=== PATIENT | female | born 1990 | race Caucasian/White ===

== ENCOUNTER 2019-09-04 20:00 | Inpatient (IN) | payer MEDICAID, SELFPAY ==
[2019-09-04] VITALS (18 sets, daily range): BP systolic 134–176; BP diastolic 65–90; PULSE 70–81; RESP 16–18; TEMP 36.6–37.8; O2SAT 100; BMI 47.5
--- NOTE | 2019-09-04 19:29 | NURSING ---
[id number] pt presents to via squad from a home delivery at 1716 per fryer operator rob ghosh. reshma here on unit made aware of pt
--- NOTE | 2019-09-04 19:31 | NURSING ---
183 cplotts into see pt; fundus firm lochia small; examination done and found that pt needs a repair; pt transferred to room 19 for use of stirrups and dr abbott called into assess need for repair. see recovery for vs and fundal checks
[2019-09-04] MEDS: 0.9% Saline Lock 10 ML Syringe IV (20:05)
--- NOTE | 2019-09-04 20:06 | PCM.PN.OB ---
Patient Problems: Active and Suspected Problems 39 weeks gestation of (Acute) - Physical Exam Vitals/I&O's: Vital Signs Temp Pulse Resp BP 97.9 F 77 16 147/87 H 09/04/19 18:30 09/04/19 19:55 09/04/19 18:30 09/04/19 19:55 Assessment/Plan All Active Problems 39 weeks gestation of (Acute)
--- NOTE | 2019-09-04 20:35 | NURSING ---
Addendum entered by Cherelle Soto 09/04/19 20:38: This interaction occurred at 1930 Original Note: Dr. Bergman in with CNW Cr Mendez to assess patient's laceration from a planned home delivery. pt has a 1st degree perineal LAC, Dr. Bergman reports ok not to repair. bleeding is under control, fundus is firm at the umbilicus. MD talked with pt about admitting her for 24 hours to monitor BP and since infant is in SCN. pt in agreeance. order received to draw Pre-e labs.
[2019-09-04 20:44] LABS: Absolute Lymphocyte Count 1.14 X10^3/uL (0.83-4.51); Absolute Neutrophil Count 11.5 X10^3/uL (2.0-7.7); Basophil# 0.03 X10^3/uL; Basophil% 0.2 % (0-1); Eosinophil# 0.01 X10^3/uL; Eosinophils% 0.1 % (0-5); Hematocrit 36.2 % (37-47); Hemoglobin 12.2 g/dL (12.0-15.0); Lymphocyte # 1.14 X10^3/ul (4.0); Lymphocyte % 8.6 % (19-41); Mean Corp Hgb Conc 33.7 g/dL (32-36); Mean Corpuscular Hgb 28.8 pg (27.0-32.0); Mean Corpuscular Volume 85.4 fL (81-99); Mean Platelet Vol. 11.9 fl (6.2-12.0); Monocyte# 0.44 X10^3/uL; Monocyte% 3.3 % (0-10); NRBC Flagged by Analyzer 0 % (0-5); Neutrophil # 11.48 X10^3/uL (2.7-7.7); Neutrophil % 87.2 % (47-70); Platelet Count 211 K/mm3 (150-450); RBC Distribution Width CV 14.2 % (11.6-14.6); RBC Distribution Width SD 43.8 fl (35.1-43.9); Red Blood Count 4.24 M/mm3 (4.2-5.4); White Blood Count 13.2 K/mm3 (4.4-11.0)
[2019-09-04 20:53] LABS: Prothrombin Time (Protime)PT. 13.4 SECONDS (11.7-14.9)
[2019-09-04 21:02] LABS: AST(SGOT) 14 U/L (15-37); Alanine Aminotransfer ALT/SGPT 13 U/L (13-56); Creatinine, Serum 0.54 mg/dL (0.55-1.02); EST Glomerular Filtration Rate 142 mL/min (>60); Est Glom Filt Rate - Afr Amer 172 mL/min (>60); Estimated Creatinine Clearance 122.67 ml/min; Uric Acid 4.5 mg/dL (2.6-6.0)
--- NOTE | 2019-09-04 21:15 | PCM.HP.OB ---
History Date of Admission: 09/04/19 Final OZ: 09/10/19 Gestational age: 39 Weeks and 1 Days History of this : This is a 29 year-old, delivered at approx 515 this evening at home. The needed to be resuscitated. A squad was called for the , then a second squad was called to transport the mom to the hospital. She has a history of 2 previous vaginal deliveries and her first delivery was a section. This was a planned home . She denies any complications during the or delivery. She had meconium stained fluid. Allergies amoxicillin Allergy (Verified 09/04/19 19:59) Hives Penicillins [PCN] Allergy (Verified 09/04/19 19:59) Hives Home Medications: Home Medications Ferrous Sulfate [Iron] 325 mg PO BID 09/04/19 Vits [Prenatabs FA] 1 tab PO DAILY 09/04/19 Smoking Status: Never smoker Alcohol: None Number of Fetus(es): 1 History Past Pregnancies: Past Pregnancies Delivery Date Name GA/ Weeks Outcome Route Wt Sex Labor Length Anesthesia Delivery Location Provider FOB Review of Systems Constitutional: Denies: Anorexia, Chills, Fever Eyes: Denies: Blurred vision Cardiovascular: Denies: Chest Pain, Edema Respiratory: Denies: Cough Gastrointestinal: Denies: Diarrhea, Vomiting Genitourinary: Denies: Dysuria Skin: Denies: Rash Neurological: Denies: Blurred vision, Double vision, Change in Speech, Confusion, Headaches Hematologic/ Lymphatic: Reports: Anemia Physical Exam Vitals: Vital Signs Temp Pulse Resp BP 97.9 F 72 16 134/89 H 09/04/19 18:30 09/04/19 20:33 09/04/19 18:30 09/04/19 20:33 General: Alert, Cooperative, No apparent distress Lungs: Normal air movement Abdomen: Soft, Non Tender, Non-Distended, - - fundus firm below umbilicus Extremities:: Other - edema 1+ Neurological: Cranial nerves II-XII grossly intact, Deep Tendon Reflexes 2+/4 and Symmetrical. 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 No repair necessary. Average lochia at this time. Blood pressures mildly elevated. No other symptoms of preeclampsia. Will check preeclampsia labs. Draw labs. Baby is in special care nursery. Patient may visit baby in special care nursery unless symptoms of preeclampsia with severe features, then would require magnesium sulfate prophylaxis. Patient is agreed to [facility] to be near her son who is in the special care nursery. Routine care.
[2019-09-04 21:18] LABS: Protein, Urine (Random) 258.1 mg/dL (<11.9); Protein:Creat Ratio 16031 mg/g CRE (0-200)
[2019-09-04 21:19] LABS: Amphetamine Urine VISTA NEGATIVE (<1000 ng/mL); Barbiturate Urine VISTA NEGATIVE (< 200 ng/mL); Benzodiazepine Urine VISTA NEGATIVE (< 200 ng/mL); Cocaine Urine VISTA NEGATIVE (< 300 ng/mL); Ecstacy Urine VISTA NEGATIVE (< 500 ng/mL); Methadone Urine VISTA NEGATIVE (< 300 ng/mL); PCP Urine VISTA NEGATIVE (< 25 ng/mL); THC Urine VISTA NEGATIVE (< 50 ng/mL); Vista UDS pH Range 6
[2019-09-04 21:40] LABS: Rubella IgG 57.8 IU/mL
[2019-09-04 22:28] LABS: HIV - WCH Non-Reactive (Nonreactive); Hepatitis B Surface Antigen Non-Reactive (Nonreactive); Hepatitis C Antibody Non-Reactive (Nonreactive)
[2019-09-05 00:10] VITALS: BP 141/77; PULSE 74; RESP 18; TEMP 36.9
[2019-09-05 03:20] VITALS: BP 120/72; PULSE 85; RESP 18; TEMP 36.7
--- NOTE | 2019-09-05 05:50 | DCINST_ITS ---
Discharge Diet: No Restrictions Discharge Activity: May Drive, May Shower May resume sexual activity in: 6-8 weeks Lifting Restrictions: less than 25lbs Call your doctor if you observe: Chest pain, Calf discomfort Additional Instructions: If you experience any of the following, contact your healthcare provider. * Bleeding that soaks a pad every hour for 2 hours * Fever 100.4 or higher * Unrelieved incision or abdominal pain * Swelling, redness, discharge or bleeding from your incision or episiotomy site * Your incision begins to separate * Problems urinating (including inability to urinate or burning while ur inating). * Visual changes * Severe headache * Flu-like symptoms * Pain or redness in one of both of your breasts * Pain, warmth, tenderness or swelling in your legs, especially the calf area * Frequent nausea and vomiting * Symptoms of depression or anxiety If you experience any of the following, call 911 or go to the nearest Emergency Room. * Chest pain * Problems breathing * Seizure activity * Partial or complete paralysis of a body part, slurred speech, weakness or drooping of the face, or a sudden inability to walk or hold your balance Allergies/Adverse Reactions: Allergies amoxicillin Allergy (Verified 09/04/19 19:59) Hives Penicillins [PCN] Allergy (Verified 09/04/19 19:59) Hives Medications to take at Discharge Ferrous Sulfate [Iron] 325 mg PO BID 09/04/19 Vits [Prenatabs FA] 1 tab PO DAILY 09/04/19 Please Follow Up With: Jyoti Fan MD When: May call for virtural visit in 2 weeks. Regular PP follow up in 6 weeks. Primary Care Physician: Care Physician,No Primary [Primary Care Provider] - Test Results: Test results from this visit will be discussed in further detail at your follow- up appointment, if applicable. Proposed Discharge Date: 09/05/19
--- NOTE | 2019-09-05 05:50 | PCM.DCVAG ---
Discharge Diet: No Restrictions Discharge Activity: May Drive, May Shower May resume sexual activity in: 6-8 weeks Lifting Restrictions: less than 25lbs Call your doctor if you observe: Chest pain, Calf discomfort Additional Instructions: If you experience any of the following, contact your healthcare provider. Bleeding that soaks a pad every hour for 2 hours Fever 100.4 or higher Unrelieved incision or abdominal pain Swelling, redness, discharge or bleeding from your incision or episiotomy site Your incision begins to separate Problems urinating (including inability to urinate or burning while urinating). Visual changes Severe headache Flu-like symptoms Pain or redness in one of both of your breasts Pain, warmth, tenderness or swelling in your legs, especially the calf area Frequent nausea and vomiting Symptoms of depression or anxiety If you experience any of the following, call 911 or go to the nearest Emergency Room. Chest pain Problems breathing Seizure activity Partial or complete paralysis of a body part, slurred speech, weakness or drooping of the face, or a sudden inability to walk or hold your balance Allergies/Adverse Reactions: Allergies amoxicillin Allergy (Verified 09/04/19 19:59) Hives Penicillins [PCN] Allergy (Verified 09/04/19 19:59) Hives Medications to take at Discharge Ferrous Sulfate [Iron] 325 mg PO BID 09/04/19 Vits [Prenatabs FA] 1 tab PO DAILY 09/04/19 Please Follow Up With: Jyoti Fan MD When: May call for virtural visit in 2 weeks. Regular PP follow up in 6 weeks. Primary Care Physician: Care Physician,No Primary [Primary Care Provider] - Test Results: Test results from this visit will be discussed in further detail at your follow-up appointment, if applicable. Proposed Discharge Date: 09/05/19
--- NOTE | 2019-09-05 06:00 | PCM.PN.BLA ---
Progress Note Patient up and ambulating without difficulty. Frequently in SCN with infant. Pumping breasts without difficulty. Stated feeling well. Denies pain. Bleeding has decreased. No pain medication taken. Patient's BP's throughout the night were 120-140/72-76. Denies headache or vision changes. Feeling well. Plan: D/C home-or patient to stay as HOTEL due to in SCN STROKE Vital Signs/Narrative: Vital Signs Temp Pulse Resp BP 09/05/19 03:20 98.0 F 85 18 120/72
[2019-09-05 07:30] VITALS: BP 143/82; PULSE 80; RESP 18; TEMP 37.1
[2019-09-05 12:25] VITALS: BP 125/64; PULSE 78; RESP 16; TEMP 36.9
[2019-09-05 17:30] VITALS: BP 132/79; PULSE 74; RESP 16; TEMP 36.7
[2019-09-05 21:00] VITALS: BP 123/72; PULSE 80; RESP 128; TEMP 37.1; O2SAT 99
[2019-09-06 02:00] VITALS: BP 118/64; PULSE 88; RESP 18; TEMP 36.6; O2SAT 99
[2019-09-06 07:31] VITALS: BP 121/79; PULSE 67; RESP 16; TEMP 36.6
--- NOTE | 2019-09-06 08:23 | PCM.PN.OB ---
Patient Problems: Active and Suspected Problems 39 weeks gestation of (Acute) Subjective: Seen at bedside, doing well. Patient reports good pain control. Mild lochia. Voiding without difficulty. - Physical Exam Vitals/I&O's: Vital Signs Temp Pulse Resp BP Pulse Ox 97.8 F 67 16 121/79 H 99 09/06/19 07:31 09/06/19 07:31 09/06/19 07:31 09/06/19 07:31 09/06/19 02:00 Oxygen Delivery Method Room Air Weight: 117.934 kg Body Mass Index (BMI) 47.5 Intake and Output for Last 24 Hours 09/04/19 09/05/19 09/06/19 23:59 23:59 23:59 Output Total 1100 / 1100 Balance -1100 / -1100 General: Alert, Oriented x3 Abdomen: Soft, Non Tender, Non-Distended - Fundus firm Extremities: No Calf Tenderness Current Medications Acetaminophen (Tylenol) 1,000 mg PO Q8H PRN PRN PRN Reason: Pain Score 1-3/10 Bisacodyl (Dulcolax) 10 mg RECTAL UD PRN PRN Reason: If no BM Dibucaine (Dibucaine) 1 applic TOPICAL TID PRN PRN; Protocol PRN Reason: Discomfort Ferrous Sulfate (Ferrous Sulfate) 325 mg PO BIDCM BRIANNA Last Admin: 09/06/19 08:00 Dose: Not Given Documented by: Hydrocortisone (Hytone) 1 applic TOPICAL TID PRN PRN; Protocol PRN Reason: Discomfort Methylergonovine Maleate (Methergine) 0.2 mg IM X1 PRN PRN Reason: Excess bleeding/uterine atony Naproxen (Naprosyn) 500 mg PO Q8H PRN PRN PRN Reason: Pain Score 1-3/10 Ondansetron HCl (Zofran) 4 mg IV Q4H PRN PRN PRN Reason: Nausea Multivit/Folic Acid/Iron (Prenatabs Fa) 1 tablet PO DAILY@1200 RBIANNA Last Admin: 09/05/19 13:21 Dose: Not Given Documented by: Senna/Docusate Sodium (Senokot-S, Vianca-Colace) 1 - 2 tablet PO DAILY PRN PRN PRN Reason: Constipation Simethicone (Mylicon) 80 mg PO PCHS PRN PRN Reason: Indigestion/Stomach pain Sodium Chloride () 5 - 15 ml IV UD PRN PRN Reason: SALINE FLUSH Last Admin: 09/04/19 20:05 Dose: 10 ml Documented by: Medical Necessity - Tobacco Use Smoking Status: Never smoker Assessment/Plan All Active Problems 39 weeks gestation of (Acute) PPD#2, doing well dc to hot status
--- NOTE | 2019-09-06 08:26 | DCINST_ITS ---
Discharge Diet: No Restrictions Discharge Activity: May Drive, May Shower May resume sexual activity in: 6-8 weeks Additional Activity Instructions:: Nothing in the vagina for 4-6 weeks. You may return to work/school in 6 weeks. Call your doctor if your incision/area has: Continuous Slow Oozing, Sudden Increased Bleeding, Increased Pain/ Swelling, Increased Redness, Foul Smelling Discharge Call your doctor if you observe: Chest pain, Calf discomfort Additional Instructions: If you experience any of the following, contact your healthcare provider. * Bleeding that soaks a pad every hour for 2 hours * Fever 100.4 or higher * Unrelieved incision or abdominal pain * Swelling, redness, discharge or bleeding from your incision or episiotomy site * Your incision begins to separate * Problems urinating (including inability to urinate or burning while urinating). * Visual changes * Severe headache * Flu-like symptoms * Pain or redness in one of both of your breasts * Pain, warmth, tenderness or swelling in your legs, especially the calf area * Frequent nausea and vomiting * Symptoms of depression or anxiety If you experience any of the following, call 911 or go to the nearest Emergency Room. * Chest pain * Problems breathing * Seizure activity * Partial or complete paralysis of a body part, slurred speech, weakness or drooping of the face, or a sudden inability to walk or hold your balance Allergies/Adverse Reactions: Allergies amoxicillin Allergy (Verified 09/04/19 19:59) Hives Penicillins [PCN] Allergy (Verified 09/04/19 19:59) Hives Medications to take at Discharge Ferrous Sulfate [Iron] 325 mg PO BID 09/04/19 Vits [Prenatabs FA ] 1 tab PO DAILY 09/04/19 When: Call to make an appointment with your doctor in 6 weeks. If you had elevated Blood Pressure or 4th degree laceration you will need to be seen in 2 weeks. Primary Care Physician: Care Physician,No Primary [Primary Care Provider] - Test Results: Test results from this visit will be discussed in further detail at your follow- up appointment, if applicable. Proposed Discharge Date: 09/05/19
[2019-09-06 13:43] VITALS: BP 131/76; PULSE 77; RESP 16; TEMP 36.9
[2019-09-07 02:25] LABS: Rapid Plasmin Reagin (RPR) NONREACTIVE (NONREACTIVE)
== END 2019-09-06 13:50 | disposition home or self-care (01) | DRG 561 ==
LOC: WPOUT 20:03 → WP 20:03
PROVIDERS: Admitting Provider Obstetrics & Gynecology; Referring Provider Obstetrics & Gynecology; Visit Provider Obstetrics & Gynecology
DX: O77.0 Labor and delivery complicated by meconium in amniotic fluid (principal); O71.89 Other specified obstetric trauma; Z3A.39 39 weeks gestation of pregnancy; Z37.0 Single live birth
CPT/HCPCS: 80307; 82565; 82570; 84156; 84450; 84460; 84550; 85025; 85610; 85730; 86592; 86703; 86762; 86803; 86850; 86900; 86901; 87340; 87491; 87591; A4216

== ENCOUNTER → 2023-03-10 | Outpatient (CLI) | payer MEDICAID, SELFPAY ==
--- NOTE | 2023-03-10 09:32 | RAD_ITS ---
STUDY: X-RAY - LEFT WRIST REASON FOR EXAM: Female, 32 years old. Left wrist pain TECHNIQUE: 3 view(s) of the wrist were obtained. COMPARISON: None. FINDINGS: Normal visualized distal radius and ulna. Normal radiocarpal articulation. Normal distal radioulnar articulation. Normal carpal bones. Normal carpal articulations. Normal carpometacarpal articulation of the thumb. Normal second through fifth carpometacarpal articulations. Normal visualized metacarpal bones. The soft tissue structures are unremarkable. RAD/Wrist min 3 Views IMPRESSION: Normal x-ray examination of the wrist. Electronically Signed: Fahad Frazier MD at 10:00 EDT ,
== END | disposition home or self-care (01) ==
PROVIDERS: Referring Provider Physician Assistant Surgical; Visit Provider Physician Assistant Surgical
DX: S66.912A Strain of unspecified muscle, fascia and tendon at wrist and hand level, left hand, initial encounter (principal); X58.XXXA Exposure to other specified factors, initial encounter
CPT/HCPCS: 73110